=== PATIENT | male | born 1995 | race American Indian/Alaskan Native ===

== ENCOUNTER 2018-05-08 18:53 | Emergency (ER) | payer SELFPAY ==
--- NOTE | 2018-05-08 19:17 | ED PDOC ---
HPI: Psych/Substance Abuse History Per: Patient, Other ([place] [facility]) Additional Complaint(s): As per [place] [employer] they were called as pt. was found roaming in an apartment building and possibly intoxicated. Pt admits to smoking "a ton of weed." Offers no complaints at this time. <Travis Herndon - Last Filed: 05/08/18 20:11> <Tayla Schroeder - Last Filed: 05/09/18 00:07> Time Seen by Provider: 05/08/18 19:03 Chief Complaint (Nursing): Alcohol Ingestion Supervising Attending Note - Attestation: I have personally seen and examined this patient.: No I have reviewed all pertinent clinical information, including history, physical exam and plan: Yes <Tayla Schroeder - Last Filed: 05/09/18 00:07> Past Medical History Reviewed: Historical Data, Nursing Documentation, Vital Signs Vital Signs: Last Vital Signs Temp 98.1 F 05/08/18 18:54 Pulse 85 05/08/18 18:54 Resp 16 05/08/18 18:54 BP 125/80 05/08/18 18:54 Pulse Ox 100 05/08/18 18:54 - Family History Family History: States: Unknown Family Hx <Travis Herndon - Last Filed: 05/08/18 20:11> Vital Signs: Last Vital Signs Temp 98.1 F 05/08/18 18:54 Pulse 85 05/08/18 18:54 Resp 16 05/08/18 18:54 BP 125/80 05/08/18 18:54 Pulse Ox 100 05/08/18 23:48 <Tayla Schroeder - Last Filed: 05/09/18 00:07> - Allergies Allergies/Adverse Reactions: Allergies Allergy/AdvReac Type Severity Reaction Status Date / Time nut - unspecified Allergy RASH Verified 05/08/18 18:57 Review of Systems ROS Statement: Except As Marked, All Systems Reviewed And Found Negative <Travis Herndon - Last Filed: 05/08/18 20:11> Physical Exam - Reviewed Nursing Documentation Reviewed: Yes Vital Signs Reviewed: Yes - Physical Exam Appears: Positive for: Well, Non-toxic, No Acute Distress Head Exam: Positive for: ATRAUMATIC, NORMAL INSPECTION, NORMOCEPHALIC Skin: Positive for: Normal Color, Warm. Negative for: Rash Eye Exam: Positive for: Normal appearance, EOMI, PERRL. Negative for: Periorbital swelling, Periorbital tenderness ENT: Positive for: Other (Dry blood noted to the R side of the corner of the mouth; no facial swelling or tenderness) Neck: Positive for: Normal, Painless ROM Cardiovascular/Chest: Positive for: Regular Rate, Rhythm, Chest Non Tender Respiratory: Positive for: CNT, Normal Breath Sounds Gastrointestinal/Abdominal: Positive for: Normal Exam, Soft, Other (no ecchymosis). Negative for: Tenderness Back: Positive for: Normal Inspection. Negative for: L CVA Tenderness, R CVA Tenderness, Vertebral Tenderness (including c-spine) Extremity: Positive for: Normal ROM Neurologic/Psych: Positive for: Alert, Oriented, Gait. Negative for: Aphasia, Facial Droop <Travis Herndon - Last Filed: 05/08/18 20:11> - ECG O2 Sat by Pulse Oximetry: 100 - Progress ED Course And Treament: Pt. attempted to lunge at ED staff and police. Labs, haldol 5mg IM, ativan 2mg IM ordered. Pt. placed on restraints. <Travis Herndon - Last Filed: 05/08/18 20:11> - Laboratory Results Result Diagrams: 05/08/18 20:12 05/08/18 20:12 <Tayla Schroeder - Last Filed: 05/09/18 00:07> Disposition - Patient ED Disposition Is Patient to be Admitted: Transfer of Care (Signed out to Michael SONG pending diagnostics and re-evaluation.) - Disposition Disposition Time: 20:11 <Travis Herndon - Last Filed: 05/08/18 20:11> <Tayla Schroeder - Last Filed: 05/09/18 00:07> - Clinical Impression Clinical Impression: Substance abuse - Disposition Condition: STABLE Forms: [employer] (Peruvian)
--- NOTE | 2018-05-08 20:19 | ED PDOC ---
- Laboratory Results Result Diagrams: 05/08/18 20:12 05/08/18 20:12 - ECG O2 Sat by Pulse Oximetry: 100 (RA) Pulse Ox Interpretation: Normal <MichaelJessicaLottie K - Last Filed: 05/09/18 03:40> - Laboratory Results Result Diagrams: 05/08/18 20:12 05/08/18 20:12 <Tayla Schroeder - Last Filed: 05/11/18 09:35> Medical Decision Making Medical Decision Making: Case endorsed to video game script writer, Michael SONG, at 1999 due to shift change. Pertinent details reviewed. Patient pending CT/lab results, sobriety, and re-evaluation. 1:1 discontinued as patient sleeping comfortably. 2039 CBC unremarkable. CMP significant for hypokalemia: 3.2. Potassium ordered. Serum alcohol: [address] without contrast: No acute intracranial abnormality. Electronically signed on May 08, 2018 8:43:47 PM EDT by Klaus Jauregui M.D. ([place] [place]) CT maxillofacial without contrast: No acute osseous abnormality demonstrated. Please see the findings above. Electronically signed on May 08, 2018 8:54:14 PM EDT by Klaus Jauregui M.D. ([place] [place]) Patient sleeping comfortably. No acute distress noted. [address] for cervical study. 0015 CT cervical spine without contrast: Motion degrade study. Grossly, no acute cervical spine abnormality. Electronically signed on May 09, 2018 12:10:03 AM EDT by Anant Hyman M.D. 0235 Patient now calm, cooperative, AAOx3, in no acute distress and asking why he is in the ED at this time. Patient admits to drinking and smoking marijuana earlier in the day but does not remember being taken to the hospital or interacting with the field sales representative. Lungs clear to auscultation, cardiac RRR, abdomen soft, non-tender, repeat neuro exam shows no focal findings. Gait steady in ED. VSS, stable for discharge. Lab/Diagnostic results d/w the patient in great detail. Diagnosis of alcohol intoxication d/w the patient. Based on history, exam and diagnostic results, plan will be for outpatient follow up. Patient was observed in the ED for 7+ hours with no evidence of neurological deterioration. Patient instructed to follow-up with pmd / referral provided / the clinic in 1- 2 days without fail. Return to the emergency room at any time for any new or worsening symptoms. Patient states he fully agrees with and understands discharge instructions. States that he agrees with the plan and disposition. Verbalized and repeated discharge instructions and plan. I have given the patient opportunity to ask any additional questions. <MichaelLottie King - Last Filed: 05/09/18 03:40> Disposition Counseled Patient/Family Regarding: Studies Performed, Diagnosis, Need For Followup - POA Present On Arrival: None - Disposition Disposition: Routine/Home Disposition Time: 02:40 <Lottie Rodriguez - Last Filed: 05/09/18 03:40> <Tayla Schroeder - Last Filed: 05/11/18 09:35> - Clinical Impression Clinical Impression: Substance abuse, Alcohol intoxication - Disposition Referrals: [facility] [Outside] Condition: STABLE Additional Instructions: The emergency medical care you received today was directed towards the acute presenting symptoms. If you were prescribed any medication, please fill it and give as directed. It may take several days for your symptoms to resolve. Return to the Emergency Department at any time if symptoms worsen, do not improve, or if any other problems arise. Please contact your doctor in 2 days for re-evaluation and follow up / or call one of the physicians/clinics you have been referred to that are listed on the Patient Visit Information form that is included in your discharge packet. Bring any paperwork you were given at discharge with you along with any medications to your follow up visit. Our treatment cannot replace ongoing medical care by a primary care provider (PCP) outside of the emergency department. Instructions: Drug Abuse and Drug Addiction (DC), Alcohol Abuse and Alcoholism (DC), Effects of Alcohol on Your Health Forms: [employer] (Urdu) Print Language: JAPANESE Results - Lab Results Lab Results: 05/08/18 05/08/18 20:12 20:12 WBC 6.2 RBC 5.05 Hgb 15.2 Hct 45.7 MCV 90.4 MCH 30.1 MCHC 33.3 RDW 12.5 Plt Count 235 MPV 7.8 Neut % (Auto) 68.3 Lymph % (Auto) 22.1 Casey % (Auto) 9.0 Eos % (Auto) 0.2 Baso % (Auto) 0.4 Neut # (Auto) 4.2 Lymph # (Auto) 1.4 Casey # (Auto) 0.6 Eos # (Auto) 0.0 Baso # (Auto) 0.0 Sodium 145 Potassium 3.2 L Chloride 108 H Carbon Dioxide 25 Anion Gap 15 BUN 14 Creatinine 0.9 Est GFR ( Amer) > 60 Est GFR (Non-Af Amer) > 60 Random Glucose 98 Calcium 8.9 Total Bilirubin 0.5 AST 36 ALT 49 Alkaline Phosphatase 65 Total Protein 7.2 Albumin 4.3 Globulin 2.9 Albumin/Globulin Ratio 1.5 Alcohol, Quantitative 226 H <Lottie Rodriguez - Last Filed: 05/09/18 03:40> - Lab Results Lab Results: 05/08/18 05/08/18 20:12 20:12 WBC 6.2 RBC 5.05 Hgb 15.2 Hct 45.7 MCV 90.4 MCH 30.1 MCHC 33.3 RDW 12.5 Plt Count 235 MPV 7.8 Neut % (Auto) 68.3 Lymph % (Auto) 22.1 Casey % (Auto) 9.0 Eos % (Auto) 0.2 Baso % (Auto) 0.4 Neut # (Auto) 4.2 Lymph # (Auto) 1.4 Casey # (Auto) 0.6 Eos # (Auto) 0.0 Baso # (Auto) 0.0 Sodium 145 Potassium 3.2 L Chloride 108 H Carbon Dioxide 25 Anion Gap 15 BUN 14 Creatinine 0.9 Est GFR ( Amer) > 60 Est GFR (Non-Af Amer) > 60 Random Glucose 98 Calcium 8.9 Total Bilirubin 0.5 AST 36 ALT 49 Alkaline Phosphatase 65 Total Protein 7.2 Albumin 4.3 Globulin 2.9 Albumin/Globulin Ratio 1.5 Alcohol, Quantitative 226 H <Tayla Schroeder - Last Filed: 05/11/18 09:35>
[2018-05-08 20:30] LABS: BASO % 0.4 % (0.0-2.0); EOS % 0.2 % (0.0-4.0); HEMOGLOBIN 15.2 g/dL (12.0-18.0); LYMPH # 1.4 K/uL (1.0-4.3); LYMPH % 22.1 % (20.0-40.0); MEAN CELL VOLUME 90.4 fl (80.0-94.0); MEAN CORPUSCULAR HEMOGLOBIN 30.1 pg (27.0-31.0); MEAN CORPUSCULAR HGB CONC 33.3 g/dL (33.0-37.0); MEAN PLATELET VOLUME 7.8 fl (7.2-11.7); MONO # 0.6 K/uL (0.0-0.8); NEUT # 4.2 K/uL (1.8-7.0); NEUT % 68.3 % (50.0-75.0); RBC 5.05 Mil/uL (4.40-5.90); RED CELL DISTRIBUTION WIDTH 12.5 % (11.5-14.5); WHITE BLOOD COUNT 6.2 K/uL (4.8-10.8)
[2018-05-08 20:38] LABS: ALB/GLOB RATIO 1.5 (1.0-2.1); ALBUMIN 4.3 g/dL (3.5-5.0); ALT/SGPT 49 U/L (21-72); AST/SGOT 36 U/L (17-59); BLOOD UREA NITROGEN 14 mg/dl (9-20); CALCIUM 8.9 mg/dL (8.4-10.2); GFR NON-AFRICAN AMERICAN > 60
[2018-05-08] MEDS ORDERED: Potassium Chloride 20 mEq ER Tab PO ONE (20:44)
[2018-05-09 03:06] VITALS: BP 130/83; PULSE 89; RESP 18; TEMP 98
[2018-05-09 03:41] VITALS: O2SAT 100
--- NOTE | 2018-05-09 11:05 | CT ---
Date of service: 05/08/2018 PROCEDURE: CT MAXILLOFACIAL BONES WITHOUT CONTRAST HISTORY: trauma COMPARISON: None available. TECHNIQUE: Contiguous axial CT images of the maxillofacial bones were obtained. Coronal and sagittal reformats were generated. Radiation dose: Total exam DLP = 0.0 mGy-cm. This CT exam was performed using one or more of the following dose reduction techniques: Automated exposure control, adjustment of the mA and/or kV according to patient size, and/or use of iterative reconstruction technique. FINDINGS: NASAL BONES: Unremarkable. ORBITS: Unremarkable. PARANASAL SINUSES/ MASTOIDS: Small polyps or retention cysts are identified at the left greater than right maxillary sinuses MAXILLA: Unremarkable. MANDIBLE/ TEMPOROMANDIBULAR JOINTS: Unremarkable. SKULL BASE: Unremarkable. TEMPORAL BONES: Middle ears and mastoid grossly unremarkable. OTHER FINDINGS: None. IMPRESSION: No fracture or destructive bony lesion appreciated throughout the facial bones as discussed above. Small polyps or retention cysts in the bilateral maxillary sinuses.
--- NOTE | 2018-05-09 11:12 | CT ---
Date of service: 05/08/2018 PROCEDURE: CT HEAD WITHOUT CONTRAST. HISTORY: trauma COMPARISON: None available. TECHNIQUE: Axial computed tomography images were obtained through the head/brain without intravenous contrast. Radiation dose: Total exam DLP = 254.92 mGy-cm. This CT exam was performed using one or more of the following dose reduction techniques: Automated exposure control, adjustment of the mA and/or kV according to patient size, and/or use of iterative reconstruction technique. FINDINGS: HEMORRHAGE: No intracranial hemorrhage. BRAIN: Normal francis-white matter differentiation and density are appreciated throughout the cerebrum and cerebellum with the brainstem appearing unremarkable as well. There is no mass effect. There is no suspicious extra-axial fluid collection and the midline brain anatomy appears diffusely unremarkable. VENTRICLES: Unremarkable. No hydrocephalus. CALVARIUM: No destructive bony lesion or displaced fracture identified including through the skullbase. PARANASAL SINUSES: Unremarkable as visualized. No significant inflammatory changes. MASTOID AIR CELLS: Unremarkable as visualized. No inflammatory changes. OTHER FINDINGS: None. IMPRESSION: Unremarkable noncontrast CT of the Head. Concordant preliminary report from [facility], 05/08/2018.
--- NOTE | 2018-05-09 12:39 | CT ---
Date of service: 05/08/2018 PROCEDURE: CT Cervical Spine without contrast HISTORY: trauma COMPARISON: None available. TECHNIQUE: Axial computed tomography images were obtained of the cervical spine without the use of intravenous contrast. Coronal and sagittal reformatted images were created and reviewed. Radiation dose: Total exam DLP = 433.29 mGy-cm. This CT exam was performed using one or more of the following dose reduction techniques: Automated exposure control, adjustment of the mA and/or kV according to patient size, and/or use of iterative reconstruction technique. FINDINGS: Limitations, excessive motion artifact beginning below the C5 level through the upper thoracic spine. Patient was sedated however excessive motion artifacts are still identified in this examination. VERTEBRAE: No displaced fractures identified from C5 through the skullbase. Below C5 is limited evaluation markedly. A fracture is not suspected but is difficult to completely exclude. DISCS/SPINAL CANAL/NEURAL FORAMINA: No significant central canal or neural foraminal stenosis. Discs heights are grossly preserved. PARASPINAL SOFT TISSUES: Unremarkable. OTHER FINDINGS: None. IMPRESSION: Limited examination due to excessive motion artifacts, particularly below the C5 level. No gross fractures identified above this level. Below this level a fracture is not suspected but is difficult to completely exclude. Concordant preliminary report from [facility], 05/09/2018.
== END 2018-05-09 03:10 | disposition home or self-care (01) ==
LOC: H.ER 18:53
DX: F10.129 Alcohol abuse with intoxication, unspecified (principal); F19.10 Other psychoactive substance abuse, uncomplicated
CPT/HCPCS: 70450; 70486; 72125; 80053; 85025; 96372; 99284; G0480; J1630; J2060